=== PATIENT | male | born 1955 | race Caucasian/White ===

== ENCOUNTER 2019-12-07 11:28 | Emergency (ER) | payer BC ==
[~2019-12-07] VITALS: Ht 172.7 cm; Wt 75.0 kg
[2019-12-07] MEDS ORDERED: KETO10TAB PO (11:36)
[2019-12-07] MEDS ORDERED: CYCL-707 PO (11:36)
[2019-12-07] MEDS ORDERED: CRES10TA PO (11:36)
--- NOTE | 2019-12-07 13:00 | REPVR ---
PROCEDURE INFORMATION: Exam: XR Lumbosacral Spine, 4 or 5 Views Exam date and time: 12/07/2019 12:31 PM Age: 64 years old Clinical indication: Low back pain TECHNIQUE: Imaging protocol: XR of the lumbosacral spine, 4 or 5 views. COMPARISON: No relevant prior studies available. FINDINGS: Vertebrae: There is no fracture. Mild disc space narrowing at L5/S1. 2 mm listhesis L5 3/4. Soft tissues: Unremarkable. IMPRESSION: No fracture. Listhesis. Electronically signed by: Kaushal Mckay On 12/07/2019 12:59:56 PM
[2019-12-07] MEDS ORDERED: ULTR50TA8 PO (13:25)
[2019-12-07] MEDS ORDERED: ACETAMINOPHEN TAB 650MG DOSE (2X325MG) PO ONE (13:30)
[2019-12-07] MEDS ORDERED: traMADol 50 MG TAB PO ONE (13:30)
[2019-12-07 13:37] VITALS: BP 112/78
== END 2019-12-07 13:39 | disposition home or self-care (01) ==
LOC: M ED 11:28
DX: M51.37 Other intervertebral disc degeneration, lumbosacral region (principal); E78.5 Hyperlipidemia, unspecified; Z79.899 Other long term (current) drug therapy